=== PATIENT | male | born 1995 | race Caucasian/White ===

== ENCOUNTER 2017-07-27 15:04 | Emergency (ER) | END 2017-07-27 16:58 | disposition home or self-care (01) ==

== ENCOUNTER 2018-07-29 16:00 | Emergency (ER) | payer MEDICAID ==
[~2018-07-29] VITALS: Ht 170.2 cm; Wt 59.1 kg
[~2018-07-29 16:00] MED LIST: MAG355OR14 PO
[2018-07-29 16:16] VITALS: BP 151/86; PULSE 70; RESP 18; Ht 170.2 cm; Wt 59.1 kg
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
[2018-07-29] MEDS ORDERED: NAPR-985 PO (18:46)
== END 2018-07-29 19:46 | disposition home or self-care (01) ==
LOC: FTE 16:00
DX: M25.522 Pain in left elbow (principal); M54.9 Dorsalgia, unspecified; M54.2 Cervicalgia
CPT/HCPCS: 99282